=== PATIENT | female | born 1995 ===

== ENCOUNTER 2018-07-23 18:56 | Emergency (ER) | payer BC ==
[2018-07-23 19:15] VITALS: BP 105/69; PULSE 75; RESP 18; TEMP 98.5; O2SAT 99
--- NOTE | 2018-07-23 19:38 | ED PDOC ---
Arrival/HPI <Ken Andrews - Last Filed: 07/23/18 20:20> - General Historian: Patient - History of Present Illness Narrative History of Present Illness (Text): 07/23/18 19:36 23-year-old female presents today with left knee pain x3 days. Patient states the knee pain started while running. She denies numbness weakness or tingling in the extremity. No calf tenderness. No fevers or chills. Patient states she is having continued pain with walking. No medications taken for pain at home today. No other complaints <Liset Christine - Last Filed: 07/23/18 20:31> - General Chief Complaint: Lower Extremity Problem/Injury Time Seen by Provider: 07/23/18 18:58 Past Medical History - Provider Review Nursing Documentation Reviewed: Yes - Travel History Have you recently traveled outside [place] w/in the past 3 mons?: No - Infectious Disease Hx of Infectious Diseases: None - Cardiac Hx Cardiac Disorders: No - HEENT Hx HEENT Disorder: No - Renal Hx Renal Disorder: No - Endocrine/Metabolic Hx Endocrine Disorders: No - Integumentary Hx Dermatological Disorder: No - Musculoskeletal/Rheumatological Hx Musculoskeletal Disorders: No - Gastrointestinal Hx Gastrointestinal Disorders: No - Genitourinary/Gynecological Hx Genitourinary Disorders: No - Psychiatric Hx Psychophysiologic Disorder: No Hx Substance Use: No <Liset Christine - Last Filed: 07/23/18 20:31> Family/Social History - Physician Review Nursing Documentation Reviewed: Yes Family/Social History: Unknown Family HX Smoking Status: Never Smoked Hx Alcohol Use: No Hx Substance Use: No <Liset Christine - Last Filed: 07/23/18 20:31> Allergies/Home Meds <Ken Andrews - Last Filed: 07/23/18 20:20> <Liset Christine - Last Filed: 07/23/18 20:31> Allergies/Adverse Reactions: Allergies No Known Allergies Allergy (Verified 07/23/18 19:14) Review of Systems - Review of Systems Constitutional: absent: Fatigue, Fevers Respiratory: absent: SOB, Cough Cardiovascular: absent: Chest Pain, Palpitations Gastrointestinal: absent: Abdominal Pain, Nausea, Vomiting Musculoskeletal: Arthralgias Skin: absent: Rash, Pruritis Neurological: absent: Headache, Dizziness Psychiatric: absent: Anxiety, Depression, Suicidal Ideation <Liset Christine - Last Filed: 07/23/18 20:31> Physical Exam Vital Signs Temp Pulse Resp BP Pulse Ox 07/23/18 19:14 98.5 F 75 18 105/69 99 <Ken Andrews - Last Filed: 07/23/18 20:20> Vital Signs Reviewed: Yes Vital Signs Temp Pulse Resp BP Pulse Ox 07/23/18 19:14 98.5 F 75 18 105/69 99 Temperature: Afebrile Blood Pressure: Normal Pulse: Regular Respiratory Rate: Normal Appearance: Positive for: Well-Appearing, Non-Toxic, Comfortable Pain Distress: None Mental Status: Positive for: Alert and Oriented X 3 - Systems Exam Head: Present: Atraumatic Mouth: Present: Moist Mucous Membranes Neck: Present: Normal Range of Motion Respiratory/Chest: Present: Clear to Auscultation, Good Air Exchange. No: Respiratory Distress, Accessory Muscle Use Cardiovascular: Present: Regular Rate and Rhythm, Normal S1, S2. No: Murmurs Lower Extremity: Present: NORMAL PULSES, Normal ROM, Tenderness (left knee; + ttp over the anterior aspect of the knee; no edema, no erythema; no ecchymosis; full rom of knee. no calf tenderness. ), Neurovascularly Intact, Capillary Refill < 2 s. No: CALF TENDERNESS, Swelling, Erythema Neurological: Present: GCS=15, Speech Normal Skin: Present: Warm, Dry, Normal Color. No: Rashes Psychiatric: Present: Alert, Oriented x 3 <Liset Christine - Last Filed: 07/23/18 20:31> Medical Decision Making - RAD Interpretation Radiology Orders: 07/23/18 19:36 KNEE WITH PATELLA LEFT 3 VIEW [RAD] Stat - Medication Orders Current Medication Orders: Discontinued Medications Ibuprofen (Motrin Tab) 600 mg PO STAT STA Stop: 07/23/18 19:59 <Ken Andrews - Last Filed: 07/23/18 20:20> ED Course and Treatment: 07/23/18 19:38 Patient nontoxic well-appearing in no distress with stable vital signs X-rays of the knee: no fracture motrin po Patient placed in knee immobilizer. Crutches given for ambulation I discussed all results with patient advised to followup with the orthopedist for the next 2 days. Return if symptoms worsen persist or new symptoms develop I advised the patient that although the xrays show no fracture; there is still a possibility for ligamentous or tendon injury the patient must see the orthopedist for further evaluation. Patient verbalizes understanding of discharge instructions and need for immediate followup. All aspects of this case were discussed the attending of record. Impression: knee pain Motrin every 6 hours as needed for pain Rest, ice, compression, elevation Use crutches for ambulation Followup with the orthopedist within the next 2 days Followup with primary care physician within the next 2 days Return if symptoms worsen persist or if new symptoms develop 07/23/18 20:24 Reassessment Condition: Re-examined - RAD Interpretation Radiology Orders: 07/23/18 19:36 KNEE WITH PATELLA LEFT 3 VIEW [RAD] Stat <Liset Christine - Last Filed: 07/23/18 20:31> - PA / CENTRAL OFFICE SUPERVISOR / Resident Statement / has reviewed & agrees with the documentation as recorded. / has examined the patient and agrees with the treatment plan. <Ken Andrews - Last Filed: 07/23/18 20:20> Disposition/Present on Arrival <Ken Andrews - Last Filed: 07/23/18 20:20> - Present on Arrival Any Indicators Present on Arrival: No History of DVT/PE: No History of Uncontrolled Diabetes: No Urinary Catheter: No History of Decub. Ulcer: No History Surgical Site Infection Following: None - Disposition Have Diagnosis and Disposition been Completed?: Yes Disposition Time: 20:05 Patient Plan: Discharge <Liset Christine - Last Filed: 07/23/18 20:31> - Disposition Diagnosis: Knee pain Disposition: HOME/ ROUTINE Patient Problems: Current Active Problems Problem Status Onset Knee pain Acute Condition: GOOD Discharge Instructions (ExitCare): Knee Pain (DC) Additional Instructions: Motrin every 6 hours as needed for pain Rest, ice, compression, elevation Use crutches for ambulation Followup with the orthopedist within the next 2 days Followup with primary care physician within the next 2 days Return if symptoms worsen persist or if new symptoms develop Prescriptions: Ibuprofen [Motrin] 600 mg PO Q6H PRN #20 tab PRN Reason: pain/fever reduction Referrals: Omega Koehler MD [Staff Provider] - Follow up with primary Constance Francis MD [Medical Doctor] - Follow up with primary [facility] [Outside] - Follow up with primary [facility] [Outside] - Follow up with primary [facility] [Outside] - Follow up with primary Forms: [employer] [facility] (L[place]uanian), WORK NOTE
--- NOTE | 2018-07-24 10:44 | RAD ---
Date of service: 07/23/2018 PROCEDURE: Left Knee Radiographs. HISTORY: Pain. COMPARISON: None. TECHNIQUE: Three views obtained. FINDINGS: BONES: Normal. No fracture. JOINTS: Normal. No osteoarthritis. JOINT EFFUSION: None. OTHER FINDINGS: None. IMPRESSION: Normal radiographs of the left knee.
== END 2018-07-23 20:40 | disposition home or self-care (01) ==
LOC: ED 18:56
DX: M25.562 Pain in left knee (principal)